=== PATIENT | female | born 2000 | race American Indian/Alaskan Native ===

== ENCOUNTER 2021-08-19 12:53 | Emergency (ER) | payer SELFPAY ==
[2021-08-19] MEDS ORDERED: ZIPRASIDONE MESYLATE 20 MG VIAL IM ONE ×2 (13:29→14:00)
[2021-08-19] MEDS ORDERED: WATER FOR INJ Sterile (PF) 10 ML ONE (13:29)
--- NOTE | 2021-08-19 13:32 | Emergency Department Report ---
HPI - General Chief Complaint: Psych Time Seen by Provider: 08/19/21 13:12 - HPI HPI: Room 4 The patient is a 20-year-old female present with chief complaint of bizarre behavior. Mother states she called the patient yesterday and noticed that the patient was having rambling speech and appeared to be "having a meltdown." The patient admitted to the mother that she has not slept in 5 days. The mother who lives in [place] asked the patient's roommates to take her to her aunts house. The mother came to town today and states last night the patient appeared agitated and had a hard time falling asleep. The patient slept for approximate 4 to 5 hours and the mother took her to catholic this morning however the patient continued behaving bizarre fashion running all over the catholic and exhibiting rambling speech. The mother states the patient sent her a copy of her schoolwork electronically and the mother states that the notes did not make any sense but the mother attributed this to the patient being under a lot of stress. The mother states the last time she spoke to the patient and the patient sounded like her normal self was 08/05/2021. When I took the mother out of the room to discuss the patient's care and private the patient confided to the nurse that she has been working "for a long time" to keep this condition from everyone. The patient admitted to the nurse that she sees and hears things all the time such as children running around her. ED Past Medical Hx - Past Medical History Previous Medical History?: No - Surgical History Past Surgical History?: No Additional Surgical History: Tonsillectomy and adenoidectomy - Family History Family history: no significant - Social History Smoking Status: Current Some Day Smoker Substance Use Type: Alcohol, Marijuana - Medications Home Medications: Home Medications Medication Instructions Recorded Confirmed Last Taken Type No Known Home Medications [No 08/19/21 08/19/21 Unknown History Reported Home Medications] ED Review of Systems ROS: Stated complaint: POSS SOMETHING SLIP IN DRINK Other details as noted in HPI Comment: Unobtainable due to pts medical conditions Physical Exam - Physical Exam Vital Signs: Vital Signs 08/19/21 08/19/21 08/19/21 13:06 13:15 13:18 Respiratory 20 Rate Blood Pressure 141/61 O2 Sat by Pulse 98 100 98 Oximetry Physical Exam: GENERAL: The patient is well-developed well-nourished female lying on stretcher appearing very animated with rambling speech, but answers questions and follows commands. [] HEENT: Normocephalic. Atraumatic. Extraocular motions are intact. Patient has moist mucous membranes. NECK: Supple. No meningitic signs are noted. Trachea midline CHEST/LUNGS: Clear to auscultation. There is no respiratory distress noted. HEART/CARDIOVASCULAR: Regular. There is no tachycardia. There is no gallop rub or murmur. ABDOMEN: Abdomen is soft, nontender. Patient has normal bowel sounds. There is no abdominal distention. SKIN: There is no rash. There is no edema. There is no diaphoresis. NEURO: The patient is awake and alert. The patient is cooperative with neurologic exam. The patient has no focal neurologic deficits. The patient has normal speech. GCS 15. Cranial nerves II through XII grossly intact MUSCULOSKELETAL: There is no evidence of acute injury. ED Course Vital Signs 08/19/21 08/19/21 08/19/21 13:06 13:15 13:18 Respiratory 20 Rate Blood Pressure 141/61 O2 Sat by Pulse 98 100 98 Oximetry ED Medical Decision Making - Lab Data Result diagrams: 08/19/21 14:14 08/19/21 14:14 - Radiology Data Radiology results: report reviewed (CT head), image reviewed (CT head) [place] [id number] Cat Scan Report Signed Patient: LUCIO LUNDBERG MR#: [id number] : 2000 Acct:[id number] Age/Sex: 20 / F ADM Date: 08/19/21 Loc: ED Attending Dr: Ordering Physician: EMMA CALI MD Date of Service: 08/19/21 Procedure(s): CT head/brain wo con Accession Number(s): [id number] cc: EMMA CALI MD . CT head/brain wo con INDICATION / CLINICAL INFORMATION: 20 years Female; Bizarre behavior, rambling speech. TECHNIQUE: Routine CT head without contrast. All CT scans at this location are performed using CT dose reduction for ALARA by means of automated exposure control. COMPARISON: None. FINDINGS: BRAIN / INTRACRANIAL CONTENTS: No acute hemorrhage, mass effect, midline shift, hydrocephalus, or acute, large territorial infarct. No signs of significant atrophy or chronic infarct. No significant white matter abnormality seen. CRANIOCERVICAL JUNCTION: No significant abnormality. ORBITS: No significant abnormality of visualized orbits. SINUSES / MASTOIDS: Mild to moderate mucosal thickening in the ethmoids. ADDITIONAL FINDINGS: Prominent soft tissue is seen in the roof the nasopharynx, presumably related to reactive adenoidal tissue. Please clinically correlate. IMPRESSION: 1. No focal mass, hemorrhage, hydrocephalus, or acute, large territorial infarct. Signer Name: Laureano Al MD, III Signed: 08/19/2021 4:37 PM Workstation Name: [id number] Transcribed By: HR Dictated By: Laureano Al MD Electronically Authenticated By: Laureano Al MD Signed Date/Time: 08/19/211636 DD/ 34 TD/TT: - Differential Diagnosis Psychosis NOS, schizophrenia, substance abuse, intracranial mass Critical care attestation.: If time is entered above; I have spent that time in minutes in the direct care of this critically ill patient, excluding procedure time. ED Disposition Clinical Impression: Mood disorder Disposition: [address] [place] [address] Is pt being admited?: No Does the pt Need Aspirin: No Condition: Stable
[2021-08-19 14:48] LABS: Basophils % (Auto) 0.3 % (0.0-1.8); Eosinophils % (Auto) 0.2 % (0.0-4.3); Hematocrit 40.8 % (30.3-42.9); Hemoglobin 13.6 gm/dl (10.1-14.3); Lymphocytes # (Auto) 1.9 K/mm3 (1.2-5.4); Lymphocytes % (Auto) 27.3 % (13.4-35.0); Mean Corpuscular HGB Conc 33 % (30-34); Mean Corpuscular Volume 88 fl (79-97); Monocytes # (Auto) 0.5 K/mm3 (0.0-0.8); Monocytes % (Auto) 6.8 % (0.0-7.3); Platelet Count 296 K/mm3 (140-440); Red Blood Count 4.64 M/mm3 (3.65-5.03); Red Cell Distribution Width 13.5 % (13.2-15.2)
[2021-08-19 14:57] LABS: Alanine Aminotransferase 16 units/L (7-56); Albumin 4.2 g/dL (3.9-5); BUN/Creatinine Ratio 8; Blood Urea Nitrogen 6 mg/dL (7-17); Calcium 8.9 mg/dL (8.4-10.2); Hemolysis Index 6
[2021-08-19] MEDS ORDERED: POTASSIUM CHLORIDE ER 20 MEQ TAB PO ONE (15:05)
[2021-08-19 15:09] LABS: Free T4 (Free Thyroxine) 1.87 ng/dL (0.76-1.46)
--- NOTE | 2021-08-19 16:41 | Cat Scan Report ---
. CT head/brain wo con INDICATION / CLINICAL INFORMATION: 20 years Female; Bizarre behavior, rambling speech. TECHNIQUE: Routine CT head without contrast. All CT scans at this location are performed using CT dos e reduction for ALARA by means of automated exposure control. COMPARISON: None. FINDINGS: BRAIN / INTRACRANIAL CONTENTS: No acute hemorrhage, mass effect, midline shift, hydrocephalus, or acu te, large territorial infarct. No signs of significant atrophy or chronic infarct. No significant whi te matter abnormality seen. CRANIOCERVICAL JUNCTION: No significant abnormality. ORBITS: No significant abnormality of visualized orbits. SINUSES / MASTOIDS: Mild to moderate mucosal thickening in the ethmoids. ADDITIONAL FINDINGS: Prominent soft tissue is seen in the roof the nasopharynx, presumably related to reactive adenoidal tissue. Please clinically correlate. IMPRESSION: 1. No focal mass, hemorrhage, hydrocephalus, or acute, large territorial infarct. Signer Name: Laureano Al MD, III Signed: 08/19/2021 4:37 PM Workstation Name: [employer]
[2021-08-20 01:59] LABS: Amphetamine Screen,Urine PRESUMPTIVE NEGATIVE; Benzodiazepines Screen,Urine PRESUMPTIVE NEGATIVE; Cannabinoid Screen,Urine PRESUMPTIVE POSITIVE; Cocaine Screen,Urine PRESUMPTIVE NEGATIVE; Methadone Screen,Urine PRESUMPTIVE NEGATIVE; Opiate Screen,Urine PRESUMPTIVE NEGATIVE
[2021-08-20 02:02] LABS: Bilirubin,Urine NEG (Negative); Blood,Urine NEG (Negative); Calcium Oxalate Crystals,Urine 3+; Color,Urine Amber (Yellow); Hyaline Casts,Urine 10 /LPF; Mucus,Urine 3+ /HPF
[2021-08-20 02:11] LABS: WBC,Urine > 182.0 /HPF (0.0-6.0)
--- NOTE | 2021-08-20 11:12 | Consultation ---
History of Present Illness - Reason for Consult Consult date: 08/20/21 Reason for consult: mental health evaluation - History of Present Psychiatric Illness ED Note: The patient is a 20-year-old female present with chief complaint of bizarre behavior. Mother states she called the patient yesterday and noticed that the patient was having rambling speech and appeared to be "having a meltdown." The patient admitted to the mother that she has not slept in 5 days. The mother who lives in [place] asked the patient's roommates to take her to her aunts house. The mother came to town today and states last night the patient appeared agitated and had a hard time falling asleep. The patient slept for approximate 4 to 5 hours and the mother took her to anglican this morning however the patient continued behaving bizarre fashion running all over the anglican and exhibiting rambling speech. The mother states the patient sent her a copy of her schoolwork electronically and the mother states that the notes did not make any sense but the mother attributed this to the patient being under a lot of stress. The mother states the last time she spoke to the patient and the patient sounded like her normal self was 08/05/2021. When I took the mother out of the room to discuss the patient's care and private the patient confided to the nurse that she has been working "for a long time" to keep this condition from everyone. The patient admitted to the nurse that she sees and hears things all the time such as children running around her. The patient is a 20 year old senior in college with no psychiatric history who presents to the ED. In my encounter with the patient, she is irritable, hypervebal with flight of ideas. She patient reports that she is overwhelmed with school work and has not been able to sleep in the past 5 days. She states she keeps dropping herself on the floor. The patient denies any current suicidal/homicidal ideation and denies hallucinations. PAST PSYCHIATRIC HISTORY Diagnoses: Denies Suicide attempts or Self-harm behavior:Denies Prior psychiatric hospitalizations: Denies Substance Abuse history:marijuana Previous psychiatric medications tried:Denies Outpatient treatment: denies SOCIAL HISTORY Marital Status: Single Living Arrangements: Lives alone Employment Status: Unemployed Access to guns/weapons: Denies Education: Senior in college History of abuse: Denies Legal History: Denies ROS Constitutional: Negative for weight loss EMT: Respiratory: Negative for cough or hemoptysis All other systems reviewed and are negative MENTAL STATUS EXAMINATION General Appearance: Dressed appropriately. Behavior: Calm and cooperative. Good eye contact. Mood: ok Affect: Incongruent to stated mood Speech: Hyperverbal Thought Process: Flight of ideas/ disorganized Thought Content:Denies Suicidal Ideation:Denies Homicidal Ideation: Denies Hallucinations: Denies Delusions: None elicited Insight and Judgment: Limited Memory/Cognition: Limited Assessment and Plan (1)Unspecified mood disorder Treatment Plan 1013 Seroquel 25mg po BID Seroquel 50mg po QHS Continue home meds No medications prescribed Risks, benefits and alternatives of medications discussed with the patient, questions answered and consent obtained from patient. PSYCHOTHERAPY: Supportive psychotherapy provided MEDICAL: Per primary team DELIRIUM PRECAUTIONS: Please re-orient patient frequently, keep lights on during the day, and minimize benzodiazepines and opiates as these medications could worsen patient's confusion. 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 Will follow. Thank you for the consult. Please contact with any questions and/or concerns. Case discussed with Dr. Malagon who agrees with current disposition Medications and Allergies Medications and Allergies Allergies Allergy/AdvReac Type Severity Reaction Status Date / Time No Known Allergies Allergy Unverified 08/19/21 13:27 Home Medications Medication Instructions Recorded Confirmed Last Taken Type No Known Home Medications [No 08/19/21 08/19/21 Unknown History Reported Home Medications] Active Meds: Active Medications Diphenhydramine HCl (Diphenhydramine 50 Mg/Ml Vial) 50 mg IM Q6H PRN PRN Reason: Agitation Lorazepam (Lorazepam 2 Mg/Ml Vial) 2 mg IM Q8H PRN PRN Reason: Agitation Ziprasidone (Ziprasidone Mesylate 20 Mg Vial) 10 mg IM Q2H PRN PRN Reason: Agitation Mental Status Exam - Vital signs Last Vital Signs Temp Pulse Resp 20 08/19/21 13:18 BP 141/61 08/19/21 13:15 Pulse Ox 98 08/19/21 13:18 Results Result Diagrams: 08/19/21 14:14 08/19/21 14:14 Abnormal lab results 08/19/21 08/19/21 08/19/21 Range/Units 14:14 14:14 14:14 Potassium 2.8 L* (3.6-5.0) mmol/L BUN 6 L (7-17) mg/dL TSH 0.232 L (0.270-4.200) mlU/mL Free T4 1.87 H (0.76-1.46) ng/dL Urine WBC (Auto) (0.0-6.0) /HPF U Epithel Cells (Auto) (0-13.0) /HPF Salicylates < 0.3 L (2.8-20.0) mg/dL Acetaminophen (10.0-30.0) ug/mL 08/19/21 08/20/21 Range/Units 14:14 00:59 Potassium (3.6-5.0) mmol/L BUN (7-17) mg/dL TSH (0.270-4.200) mlU/mL Free T4 (0.76-1.46) ng/dL Urine WBC (Auto) > 182.0 H (0.0-6.0) /HPF U Epithel Cells (Auto) 72.0 H (0-13.0) /HPF Salicylates (2.8-20.0) mg/dL Acetaminophen 5.0 L (10.0-30.0) ug/mL All other labs normal.
[2021-08-20] MEDS ORDERED: POTASSIUM CHLORIDE ER 20 MEQ TAB PO ONE ×2 (11:59→22:00)
[2021-08-20] MEDS: QUEtiapine 25 MG TAB PO SCH (12:00)
--- NOTE | 2021-08-20 12:09 | Emergency Department Report ---
Blank Doc - Documentation Documentation: 20-year-old female with unspecified mood disorder currently on 1013. Labs rev eal hypokalemia. As per MAR patient refused oral potassium yesterday. I have informed the nurse to reattempt potassium 40 mEq administration of liquid as an alternative to the pill. Oral medications ordered by mental health provider.
[2021-08-20] MEDS ORDERED: WATER FOR INJ Sterile (PF) 10 ML ONE (13:29)
[2021-08-20] MEDS: ZIPRASIDONE MESYLATE 20 MG VIAL IM PRN (13:40)
[2021-08-20] MEDS: diphenhydrAMINE 50 MG/ML VIAL IM PRN (18:16)
[2021-08-20] MEDS ORDERED: QUEtiapine 25 MG TAB PO SCH (22:00)
[2021-08-21] MEDS ORDERED: POTASSIUM CHLORIDE ER 20 MEQ TAB PO ONE (00:03)
[2021-08-21] MEDS: QUEtiapine 25 MG TAB PO SCH (00:17)
[2021-08-21] MEDS: ZIPRASIDONE MESYLATE 20 MG VIAL IM PRN (03:03)
[2021-08-21] MEDS: LORazepam 2 MG/ML VIAL IM PRN ×3 (03:03→20:12)
[2021-08-21] MEDS: diphenhydrAMINE 50 MG/ML VIAL IM PRN ×2 (08:34→20:12)
--- NOTE | 2021-08-21 09:56 | Progress Note ---
Subjective - Reason for Consult Consult date: 08/21/21 Reason for consult: Psychosis - Chief Complaint Chief complaint: The patient was seen this morning. She continues to have disorganized thoughts. ROS Constitutional: Negative for weight loss EMT: Respiratory: Negative for cough or hemoptysis All other systems reviewed and are negative MENTAL STATUS EXAMINATION General Appearance: Dressed appropriately. Behavior: Calm and cooperative. Good eye contact. Mood: ok Affect: Incongruent to stated mood Speech: Hyperverbal Thought Process: Flight of ideas/ disorganized Thought Content:Denies Suicidal Ideation:Denies Homicidal Ideation: Denies Hallucinations: Denies Delusions: None elicited Insight and Judgment: Limited Memory/Cognition: Limited Assessment and Plan (1)Unspecified mood disorder Treatment Plan 1013 Start Zyprexa 5mg po BID Continue home meds No medications prescribed Risks, benefits and alternatives of medications discussed with the patient, questions answered and consent obtained from patient. PSYCHOTHERAPY: Supportive psychotherapy provided MEDICAL: Per primary team DELIRIUM PRECAUTIONS: Please re-orient patient frequently, keep lights on during the day, and minimize benzodiazepines and opiates as these medications could worsen patient's confusion. 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 Will follow. Thank you for the consult. Please contact with any questions and/or concerns. Case discussed with Dr. Malagon who agrees with current disposition Medications and Allergies Mental Status Exam - Vital signs Last Vital Signs Temp 98.4 F 08/20/21 20:22 Pulse 83 08/20/21 20:22 Resp 18 08/20/21 20:22 BP 134/103 08/20/21 20:22 Pulse Ox 99 08/21/21 04:41
--- NOTE | 2021-08-21 12:28 | Event Note ---
S: patient here with disorganzied thoughts and bizzare behavior; no significant events overnight O: VS wnl HEENT: MMM; airway patent Neck: supple; no JVD Heart: RRR; n o rub or gallop Resp: CTAB; no use of JUDAH; good air entry Ext: no LE edema; non tender calves; neg Galen's sign bilaterally A: delirium P: 1013; inpatient psych recommended; awaiting placement.
--- NOTE | 2021-08-22 10:39 | Progress Note ---
Subjective - Reason for Consult Consult date: 08/22/21 Reason for consult: psychosis - Chief Complaint Chief complaint: The patient was seen this morning. She continues to have disorganized thoughts and hyperverbal. ROS Constitutional: Negative for weight loss EMT: Respiratory: Negative for cough or hemoptysis All other systems reviewed and are negative MENTAL STATUS EXAMINATION General Appearance: Dressed appropriately. Behavior: Calm and cooperative. Good eye contact. Mood: ok Affect: Incongruent to stated mood Speech: Hyperverbal Thought Process: Flight of ideas/ disorganized Thought Content:Denies Suicidal Ideation:Denies Homicidal Ideation: Denies Hallucinations: Denies Delusions: None elicited Insight and Judgment: Limited Memory/Cognition: Limited Assessment and Plan (1)Unspecified mood disorder Treatment Plan 1013 Start Depakote 125mg po BID Continue Zyprexa 5mg po BID Continue home meds No medications prescribed Risks, benefits and alternatives of medications discussed with the patient, questions answered and consent obtained from patient. PSYCHOTHERAPY: Supportive psychotherapy provided MEDICAL: Per primary team DELIRIUM PRECAUTIONS: Please re-orient patient frequently, keep lights on during the day, and minimize benzodiazepines and opiates as these medications could worsen patient's confusion. EDGE BANDER HAND: Per primary DISPOSITION: Recommend acute inpatient psychiatric hospitalization at this time. Will follow. Thank you for the consult. Please contact with any questions and/or concerns. Case discussed with Dr. Malagon who agrees with current disposition Medications and Allergies Mental Status Exam - Vital signs Last Vital Signs Temp 96.7 F L 08/21/21 21:57 Pulse 96 H 08/21/21 21:57 Resp 16 08/22/21 02:33 BP 104/76 08/21/21 21:57 Pulse Ox 99 08/22/21 02:33
[2021-08-22] MEDS ORDERED: DIVALPROEX DR 125 MG TAB PO SCH (11:00)
[2021-08-22] MEDS ORDERED: LIDOCAINE-MPF (1%) 10 MG/1 ML VIAL 5 ML INFILTRATI ONE (13:07)
[2021-08-22 13:45] VITALS: BP 114/72
== END 2021-08-22 15:45 ==
LOC: EEVIPCON 12:53 → ED 12:53
DX: F39 Unspecified mood [affective] disorder (principal); F17.200 Nicotine dependence, unspecified, uncomplicated; F10.20 Alcohol dependence, uncomplicated; F12.90 Cannabis use, unspecified, uncomplicated
CPT/HCPCS: 36415; 70450; 80053; 80307; 81001; 84132; 84439; 84443; 84703; 85025; 96372; 99285; J0696; J1200; J2060; J3486; 80320; G0480